=== PATIENT | female | born 1960 | race African-American/Black ===

== ENCOUNTER 2017-04-12 14:10 | Inpatient (IN) | payer MEDICAID, OTHER ==
[~2017-04-12] VITALS: Ht 162.6 cm; Wt 43.8 kg
[2017-04-12 15:38] LABS: CLARITY URINE CLOUDY (CLEAR); COLOR URINE DARK YELLOW (YELLOW); GLUCOSE URINE NEGATIVE (NEGATIVE); KETONES URINE TRACE (NEGATIVE); LEUKOCYTE ESTERASE URINE NEGATIVE (NEGATIVE); NITRITE URINE NEGATIVE (NEGATIVE); OCCULT BLOOD URINE NEGATIVE (NEGATIVE); PH URINE 5.5 (4.5-8.0); PROTEIN URINE 1+ (NEGATIVE)
[2017-04-12 15:45] LABS: BG BASE EXCESS 1.9 mmol/L (-2.0-2.0); BG CARBOXYHEMOGLOBIN 2.1 % (0.5-1.5); BG DEOXYHEMOGLOBIN 3.6 % (0.0-5.0); BG FRACTION INSPIRED OXYGEN 21; BG HCO3 ACT 26.8 mmol/L (22.0-26.0); BG METHEMOGLOBIN 0.2 % (0.0-1.5); BG OXYGEN SATURATION 96.3 % (92.0-98.5); BG OXYHEMOGLOBIN 94.1 % (94.0-97.0); BG PCO2 43.2 mmHg (35.0-45.0); BG PH 7.411 (7.350-7.450); BG PO2 83.6 mmHg (75.0-100.0); BG SAMPLE SITE RIGHT BRACHIAL; BG TOTAL HEMOGLOBIN 12.9 g/dL (12.0-18.0); BG VENT MODE ROOM AIR
[2017-04-12 15:51] LABS: *AMPHETAMINES SCREEN URINE NEGATIVE (NEGATIVE); *BARBITURATES SCREEN URINE NEGATIVE (NEGATIVE); *BENZODIAZEPINES SCREEN URINE NEGATIVE (NEGATIVE); *COCAINE SCREEN URINE NEGATIVE (NEGATIVE); CANNABINOID URINE SCREEN NEGATIVE (NEGATIVE); METHADONE URINE SCREEN NEGATIVE (NEGATIVE); OPIATES URINE SCREEN NEGATIVE (NEGATIVE); PHENCYCLIDINE URINE SCREEN NEGATIVE (NEGATIVE)
[2017-04-12 15:53] LABS: MEAN CORPUSCULAR HEMOGLOBIN 23.6 pg (28.0-32.0); MEAN CORPUSCULAR VOLUME 74.9 fL (81.0-99.0); PLATELET 234 x1000/uL (130-400); RED BLOOD CELL COUNT 5.07 mill/uL (4.2-5.4); RED CELL DISTRIBUTION WIDTH 16.8 % (11.6-14.6)
[2017-04-12 15:55] LABS: CHLORIDE 105 mEq/L (98-107)
[2017-04-12 15:59] LABS: AMMONIA 26 uMol/L (<32)
[2017-04-12 16:02] LABS: CARBON DIOXIDE 28 mEq/L (21-32); ETHANOL BLOOD < 10 mg/dL
[2017-04-12 17:18] LABS: PLATELET ESTIMATE NORMAL
[2017-04-13] VITALS (9 sets, daily range): BP systolic 119–137; BP diastolic 75–89
[2017-04-13] MEDS ORDERED: SODIUM CHLORIDE 0.45% 1,000 ML IV SCH (08:13)
[2017-04-13] MEDS ORDERED: CLONIDINE 0.1MG TABLET PO PRN (08:15)
[2017-04-13] MEDS ORDERED: GUAIFENESIN 200MG/10ML SUGAR FREE UDC PO PRN (08:15)
[2017-04-13] MEDS ORDERED: NA PHOS,M-B/NA PHOS,DI-BA ENEMA 118ML PR PRN (08:15)
[2017-04-13] MEDS ORDERED: ACETAMINOPHEN 325MG TABLET PO PRN (08:15)
[2017-04-13] MEDS ORDERED: ONDANSETRON HCL 4MG/2ML VIAL IV PRN (08:15)
[2017-04-13] MEDS ORDERED: ACETAMINOPHEN 650MG/20.3ML UDC GT PRN (08:15)
[2017-04-13] MEDS ORDERED: DOCUSATE SODIUM 100MG CAPSULE PO PRN (08:15)
[2017-04-13] MEDS ORDERED: DIPHENHYDRAMINE 50MG/ML VIAL IV PRN (08:15)
[2017-04-13] MEDS ORDERED: IPRATROPIUM/ALBUTEROL 0.5-3(2.5)MG/3ML NEB INH PRN (08:15)
[2017-04-13] MEDS: ASPIRIN 325MG TABLET PO SCH (09:13)
[2017-04-13] MEDS: SODIUM CHLORIDE 0.45% 1,000 ML IV SCH ×2 (09:13→21:55)
[2017-04-13] MEDS ORDERED: INFLUENZA VIRUS VACCINE 0.5ML SYR IM ONE (10:00)
[2017-04-13 12:50] LABS: HEMATOCRIT. 37.1 % (36.0-48.0); HEMOGLOBIN. 11.6 g/dL (12.0-16.0); MEAN CORPUSCULAR HEMOGLOBIN 23.3 pg (28.0-32.0); MEAN CORPUSCULAR VOLUME 74.6 fL (81.0-99.0); MEAN PLATELET VOLUME 8.2 fl (7.4-10.4); PLATELET 259 x1000/uL (130-400); RED BLOOD CELL COUNT 4.97 mill/uL (4.2-5.4); RED CELL DISTRIBUTION WIDTH 16.3 % (11.6-14.6)
[2017-04-13 13:11] LABS: CARBON DIOXIDE 26 mEq/L (21-32); CHLORIDE 104 mEq/L (98-107); HDL CHOLESTEROL 51 mg/dL (40-59); LDL CHOLESTEROL 126 mg/dL (5-100)
[2017-04-13] MEDS: SODIUM CHLORIDE 0.9% INJ 3ML FLUSH IVF SCH ×2 (13:11→21:55)
[2017-04-13 13:56] LABS: PLATELET ESTIMATE NORMAL
[2017-04-13] MEDS ORDERED: POTASSIUM CHLORIDE 20MEQ/PACKET PO NR (15:45)
[2017-04-13 17:42] LABS: CREATINE KINASE 102 IU/L (26-192); TROPONIN I < 0.02 ng/mL (0.00-0.04)
[2017-04-13] MEDS ORDERED: POTASSIUM CHLORIDE INJ 40 MEQ in DEXT 5% WATER 250 ML IV NR (21:00)
[2017-04-13] MEDS: ATORVASTATIN CALCIUM 10MG TABLET PO SCH (21:55)
[2017-04-14] VITALS (17 sets, daily range): BP systolic 110–154; BP diastolic 56–99
[2017-04-14 02:22] LABS: CREATINE KINASE 129 IU/L (26-192); TROPONIN I < 0.02 ng/mL (0.00-0.04)
[2017-04-14] MEDS: SODIUM CHLORIDE 0.9% INJ 3ML FLUSH IVF SCH ×3 (06:13→22:10)
[2017-04-14 06:50] LABS: HEMATOCRIT. 36.4 % (36.0-48.0); HEMOGLOBIN. 11.5 g/dL (12.0-16.0); MEAN CORPUSCULAR HEMOGLOBIN 23.7 pg (28.0-32.0); MEAN CORPUSCULAR VOLUME 75.2 fL (81.0-99.0); MEAN PLATELET VOLUME 8.2 fl (7.4-10.4); PLATELET 245 x1000/uL (130-400); RED BLOOD CELL COUNT 4.85 mill/uL (4.2-5.4); RED CELL DISTRIBUTION WIDTH 16.4 % (11.6-14.6)
[2017-04-14 07:23] LABS: CARBON DIOXIDE 24 mEq/L (21-32); CHLORIDE 101 mEq/L (98-107)
[2017-04-14 07:29] LABS: HDL CHOLESTEROL 41 mg/dL (40-59); LDL CHOLESTEROL 120 mg/dL (5-100)
[2017-04-14] MEDS: ASPIRIN 325MG TABLET PO SCH (08:58)
[2017-04-14 17:13] LABS: PLATELET ESTIMATE NORMAL
[2017-04-14] MEDS: ATORVASTATIN CALCIUM 10MG TABLET PO SCH (22:10)
[2017-04-15] VITALS (11 sets, daily range): BP systolic 90–140; BP diastolic 58–83
[2017-04-15] MEDS: SODIUM CHLORIDE 0.9% INJ 3ML FLUSH IVF SCH ×3 (06:45→21:29)
[2017-04-15] MEDS: ASPIRIN 325MG TABLET PO SCH (08:58)
[2017-04-15] MEDS: ATORVASTATIN CALCIUM 10MG TABLET PO SCH (21:29)
[2017-04-15] MEDS: THIAMINE HCL 100MG TABLET PO SCH (21:31)
[2017-04-16] VITALS (9 sets, daily range): BP systolic 100–117; BP diastolic 67–79
[2017-04-16] MEDS: SODIUM CHLORIDE 0.9% INJ 3ML FLUSH IVF SCH ×3 (06:17→21:37)
[2017-04-16] MEDS: ASPIRIN 325MG TABLET PO SCH (08:47)
[2017-04-16] MEDS: THIAMINE HCL 100MG TABLET PO SCH (08:47)
[2017-04-16] MEDS: ATORVASTATIN CALCIUM 10MG TABLET PO SCH (20:11)
[2017-04-17] VITALS: BP 114/66
[2017-04-17 04:00] VITALS: BP 113/71
[2017-04-17] MEDS: SODIUM CHLORIDE 0.9% INJ 3ML FLUSH IVF SCH ×3 (06:20→22:00)
[2017-04-17 08:00] VITALS: BP 107/72
[2017-04-17] MEDS: THIAMINE HCL 100MG TABLET PO SCH (09:27)
[2017-04-17] MEDS: ASPIRIN 325MG TABLET PO SCH (09:27)
[2017-04-17 12:00] VITALS: BP 94/59
[2017-04-17 16:00] VITALS: BP 97/67
[2017-04-17 20:00] VITALS: BP 98/70
[2017-04-17] MEDS: ATORVASTATIN CALCIUM 10MG TABLET PO SCH (23:20)
[2017-04-18] VITALS: BP 107/74
[2017-04-18 04:00] VITALS: BP 99/62
[2017-04-18] MEDS: SODIUM CHLORIDE 0.9% INJ 3ML FLUSH IVF SCH ×3 (06:00→22:00)
[2017-04-18 08:00] VITALS: BP 102/76
[2017-04-18] MEDS: THIAMINE HCL 100MG TABLET PO SCH (08:02)
[2017-04-18] MEDS: ASPIRIN 325MG TABLET PO SCH (08:02)
[2017-04-18 12:00] VITALS: BP 103/70
[2017-04-18 16:00] VITALS: BP 124/64
[2017-04-18 20:00] VITALS: BP 125/77
[2017-04-18] MEDS: ATORVASTATIN CALCIUM 10MG TABLET PO SCH (21:00)
[2017-04-19] VITALS: BP 105/72
[2017-04-19 04:00] VITALS: BP 106/65
[2017-04-19] MEDS: SODIUM CHLORIDE 0.9% INJ 3ML FLUSH IVF SCH ×3 (06:00→21:51)
[2017-04-19 08:00] VITALS: BP 108/70
[2017-04-19] MEDS: ASPIRIN 325MG TABLET PO SCH (08:28)
[2017-04-19] MEDS: THIAMINE HCL 100MG TABLET PO SCH (08:28)
[2017-04-19 12:00] VITALS: BP 97/56
[2017-04-19 16:00] VITALS: BP 92/57
[2017-04-19 20:00] VITALS: BP 112/81
[2017-04-19 20:04] LABS: BASOPHILS % 0.4 % (0.0-2.0); EOSINOPHILS % 3.3 % (0.0-5.0); HEMATOCRIT. 39.2 % (36.0-48.0); HEMOGLOBIN. 12.6 g/dL (12.0-16.0); LYMPHOCYTES % 29.1 % (20.0-50.0); MEAN CORPUSCULAR HEMOGLOBIN 24.3 pg (28.0-32.0); MEAN CORPUSCULAR VOLUME 75.5 fL (81.0-99.0); MEAN PLATELET VOLUME 8.4 fl (7.4-10.4); NEUTROPHILS % 52.2 % (40.0-76.0); PLATELET 292 x1000/uL (130-400); RED BLOOD CELL COUNT 5.19 mill/uL (4.2-5.4); RED CELL DISTRIBUTION WIDTH 15.2 % (11.6-14.6)
[2017-04-19 20:19] LABS: CARBON DIOXIDE 26 mEq/L (21-32); CHLORIDE 98 mEq/L (98-107)
[2017-04-19 21:08] LABS: PLATELET ESTIMATE NORMAL
[2017-04-19] MEDS: ATORVASTATIN CALCIUM 10MG TABLET PO SCH (21:49)
[2017-04-20] VITALS: BP 115/76
[2017-04-20 04:00] VITALS: BP 111/70
[2017-04-20] MEDS: SODIUM CHLORIDE 0.9% INJ 3ML FLUSH IVF SCH ×2 (06:00→22:00)
[2017-04-20 08:00] VITALS: BP_SYST 103; BP_SYST 97; BP_DIAS 68; BP_DIAS 69
[2017-04-20] MEDS: ASPIRIN 325MG TABLET PO SCH (09:00)
[2017-04-20] MEDS: THIAMINE HCL 100MG TABLET PO SCH (09:00)
[2017-04-20 15:46] VITALS: BP 103/67
[2017-04-20 20:00] VITALS: BP 106/73
[2017-04-20] MEDS: ATORVASTATIN CALCIUM 10MG TABLET PO SCH (22:01)
[2017-04-21] VITALS: BP 99/59
[2017-04-21 04:00] VITALS: BP 98/66
[2017-04-21 08:00] VITALS: BP 103/68
[2017-04-21] MEDS: ASPIRIN 325MG TABLET PO SCH (08:59)
[2017-04-21] MEDS: THIAMINE HCL 100MG TABLET PO SCH (08:59)
[2017-04-21 12:00] VITALS: BP 97/71
[2017-04-21] MEDS: SODIUM CHLORIDE 0.9% INJ 3ML FLUSH IVF SCH ×2 (14:00→21:14)
[2017-04-21 16:00] VITALS: BP 99/67
[2017-04-21 20:00] VITALS: BP 100/70
[2017-04-21] MEDS: ATORVASTATIN CALCIUM 10MG TABLET PO SCH ×2 (21:00→21:14)
[2017-04-22] VITALS: BP 94/64
[2017-04-22 04:00] VITALS: BP 94/64
[2017-04-22] MEDS: SODIUM CHLORIDE 0.9% INJ 3ML FLUSH IVF SCH ×3 (06:00→22:00)
[2017-04-22 08:00] VITALS: BP 105/69
[2017-04-22] MEDS: ASPIRIN 325MG TABLET PO SCH (08:59)
[2017-04-22] MEDS: THIAMINE HCL 100MG TABLET PO SCH (09:00)
[2017-04-22 12:00] VITALS: BP 100/66
[2017-04-22 16:00] VITALS: BP 101/68
[2017-04-22 20:00] VITALS: BP 95/67
[2017-04-22] MEDS: ATORVASTATIN CALCIUM 10MG TABLET PO SCH (23:39)
[2017-04-23] VITALS: BP 100/60
[2017-04-23 04:00] VITALS: BP 100/52
[2017-04-23] MEDS: SODIUM CHLORIDE 0.9% INJ 3ML FLUSH IVF SCH ×3 (06:00→21:57)
[2017-04-23 08:00] VITALS: BP 99/64
[2017-04-23] MEDS: ASPIRIN 325MG TABLET PO SCH (08:21)
[2017-04-23] MEDS: THIAMINE HCL 100MG TABLET PO SCH (08:21)
[2017-04-23 12:00] VITALS: BP 100/67
[2017-04-23 16:00] VITALS: BP 97/64
[2017-04-23 20:00] VITALS: BP 99/66
[2017-04-23] MEDS: ATORVASTATIN CALCIUM 10MG TABLET PO SCH (21:56)
[2017-04-24] VITALS: BP 97/62
[2017-04-24 04:00] VITALS: BP 96/62
[2017-04-24] MEDS: SODIUM CHLORIDE 0.9% INJ 3ML FLUSH IVF SCH ×3 (06:00→22:00)
[2017-04-24 08:00] VITALS: BP 125/76
[2017-04-24] MEDS: ASPIRIN 325MG TABLET PO SCH (08:44)
[2017-04-24] MEDS: THIAMINE HCL 100MG TABLET PO SCH (08:44)
[2017-04-24 12:00] VITALS: BP 101/60
[2017-04-24 16:00] VITALS: BP 91/56
[2017-04-24 20:00] VITALS: BP 91/58
[2017-04-24 22:00] LABS: HEMATOCRIT. 37.1 % (36.0-48.0); HEMOGLOBIN. 11.8 g/dL (12.0-16.0); MEAN CORPUSCULAR HEMOGLOBIN 23.8 pg (28.0-32.0); MEAN CORPUSCULAR VOLUME 74.9 fL (81.0-99.0); MEAN PLATELET VOLUME 7.2 fl (7.4-10.4); PLATELET 269 x1000/uL (130-400); RED BLOOD CELL COUNT 4.95 mill/uL (4.2-5.4); RED CELL DISTRIBUTION WIDTH 15.1 % (11.6-14.6)
[2017-04-24] MEDS: ATORVASTATIN CALCIUM 10MG TABLET PO SCH (22:06)
[2017-04-24 22:14] LABS: CARBON DIOXIDE 29 mEq/L (21-32); CHLORIDE 100 mEq/L (98-107)
[2017-04-24 22:27] LABS: PLATELET ESTIMATE NORMAL
[2017-04-25] VITALS: BP 96/64
[2017-04-25 08:00] VITALS: BP 97/58
[2017-04-25] MEDS: SODIUM CHLORIDE 0.9% INJ 3ML FLUSH IVF SCH ×3 (11:30→22:00)
[2017-04-25] MEDS: THIAMINE HCL 100MG TABLET PO SCH (11:31)
[2017-04-25] MEDS: ASPIRIN 325MG TABLET PO SCH (11:33)
[2017-04-25 12:00] VITALS: BP 90/60
[2017-04-25 16:00] VITALS: BP 95/62
[2017-04-25 20:00] VITALS: BP 122/80
[2017-04-25] MEDS: ATORVASTATIN CALCIUM 10MG TABLET PO SCH (22:01)
[2017-04-26] VITALS: BP 130/66
[2017-04-26 04:00] VITALS: BP 136/70
[2017-04-26] MEDS: SODIUM CHLORIDE 0.9% INJ 3ML FLUSH IVF SCH ×3 (06:00→22:00)
[2017-04-26 08:00] VITALS: BP 104/68
[2017-04-26] MEDS: ASPIRIN 325MG TABLET PO SCH (11:24)
[2017-04-26] MEDS: THIAMINE HCL 100MG TABLET PO SCH (11:24)
[2017-04-26 12:00] VITALS: BP 100/66
[2017-04-26 16:00] VITALS: BP 95/66
[2017-04-26 20:00] VITALS: BP 149/89
[2017-04-26] MEDS: ATORVASTATIN CALCIUM 10MG TABLET PO SCH (23:24)
[2017-04-27] VITALS: BP 109/70
[2017-04-27 04:00] VITALS: BP 111/69
[2017-04-27] MEDS: SODIUM CHLORIDE 0.9% INJ 3ML FLUSH IVF SCH ×3 (06:00→22:00)
[2017-04-27 08:00] VITALS: BP 98/58
[2017-04-27] MEDS: ASPIRIN 325MG TABLET PO SCH (09:34)
[2017-04-27] MEDS: THIAMINE HCL 100MG TABLET PO SCH (09:34)
[2017-04-27 12:00] VITALS: BP 93/67
[2017-04-27 16:00] VITALS: BP 91/63
[2017-04-27 20:00] VITALS: BP 96/55
[2017-04-27] MEDS: ATORVASTATIN CALCIUM 10MG TABLET PO SCH (20:43)
[2017-04-28] VITALS: BP 96/73
[2017-04-28 04:00] VITALS: BP 107/66
[2017-04-28] MEDS: SODIUM CHLORIDE 0.9% INJ 3ML FLUSH IVF SCH ×3 (06:00→21:30)
[2017-04-28 08:00] VITALS: BP 100/66
[2017-04-28] MEDS: THIAMINE HCL 100MG TABLET PO SCH (09:55)
[2017-04-28] MEDS: ASPIRIN 325MG TABLET PO SCH (09:55)
[2017-04-28 12:00] VITALS: BP 95/59
[2017-04-28 16:00] VITALS: BP 94/59
[2017-04-28] MEDS: ATORVASTATIN CALCIUM 10MG TABLET PO SCH (21:35)
[2017-04-29] VITALS: BP 90/59
[2017-04-29] MEDS: SODIUM CHLORIDE 0.9% INJ 3ML FLUSH IVF SCH ×2 (06:00→14:00)
[2017-04-29 08:00] VITALS: BP 109/70
[2017-04-29] MEDS: THIAMINE HCL 100MG TABLET PO SCH (09:00)
[2017-04-29] MEDS: ASPIRIN 325MG TABLET PO SCH (09:00)
[2017-04-29 12:00] VITALS: BP 90/59
[2017-04-29 16:00] VITALS: BP 93/62
[2017-04-29 20:00] VITALS: BP 99/67
[2017-04-29] MEDS: ATORVASTATIN CALCIUM 10MG TABLET PO SCH (20:44)
[2017-04-30] VITALS (7 sets, daily range): BP systolic 85–105; BP diastolic 53–80
[2017-04-30] MEDS: ASPIRIN 325MG TABLET PO SCH (08:56)
[2017-04-30] MEDS: THIAMINE HCL 100MG TABLET PO SCH (08:56)
[2017-04-30] MEDS: ATORVASTATIN CALCIUM 10MG TABLET PO SCH (20:34)
[2017-05-01] VITALS: BP 108/72
[2017-05-01 04:00] VITALS: BP 100/60
[2017-05-01 08:00] VITALS: BP 98/62
[2017-05-01] MEDS: THIAMINE HCL 100MG TABLET PO SCH (08:16)
[2017-05-01] MEDS: ASPIRIN 325MG TABLET PO SCH (08:16)
[2017-05-01 12:00] VITALS: BP 94/52
[2017-05-01 16:00] VITALS: BP 101/74
[2017-05-01 20:00] VITALS: BP 96/57
[2017-05-01] MEDS: ATORVASTATIN CALCIUM 10MG TABLET PO SCH (22:19)
[2017-05-02] VITALS: BP 140/70
[2017-05-02 04:00] VITALS: BP 91/55
[2017-05-02] MEDS: THIAMINE HCL 100MG TABLET PO SCH (08:23)
[2017-05-02] MEDS: ASPIRIN 325MG TABLET PO SCH (08:23)
[2017-05-02 20:00] VITALS: BP 95/64
[2017-05-02] MEDS: ATORVASTATIN CALCIUM 10MG TABLET PO SCH (21:55)
[2017-05-03] VITALS: BP 102/74
[2017-05-03 04:00] VITALS: BP 93/61
[2017-05-03 08:00] VITALS: BP 110/76
[2017-05-03] MEDS: THIAMINE HCL 100MG TABLET PO SCH (09:53)
[2017-05-03] MEDS: ASPIRIN 325MG TABLET PO SCH (09:53)
[2017-05-03 12:00] VITALS: BP 95/61
[2017-05-03 16:00] VITALS: BP 98/65
[2017-05-03 20:00] VITALS: BP 93/65
[2017-05-03] MEDS: ATORVASTATIN CALCIUM 10MG TABLET PO SCH (21:00)
[2017-05-04] VITALS: BP 104/66
[2017-05-04 04:00] VITALS: BP 92/56
[2017-05-04 07:34] VITALS: BP 102/68
[2017-05-04] MEDS: ASPIRIN 325MG TABLET PO SCH (09:10)
[2017-05-04] MEDS: THIAMINE HCL 100MG TABLET PO SCH (09:10)
[2017-05-04 12:05] VITALS: BP 92/47
[2017-05-04 15:47] VITALS: BP 105/64
[2017-05-04 20:00] VITALS: BP 103/70
[2017-05-04] MEDS: ATORVASTATIN CALCIUM 10MG TABLET PO SCH (21:46)
[2017-05-05] VITALS: BP 119/76
[2017-05-05 04:00] VITALS: BP 104/69
[2017-05-05 08:00] VITALS: BP 154/76
[2017-05-05] MEDS: ASPIRIN 325MG TABLET PO SCH (11:14)
[2017-05-05] MEDS: THIAMINE HCL 100MG TABLET PO SCH (11:14)
[2017-05-05 12:00] VITALS: BP 97/62
[2017-05-05 16:00] VITALS: BP 101/69
[2017-05-05 20:00] VITALS: BP 102/66
[2017-05-05] MEDS: ATORVASTATIN CALCIUM 10MG TABLET PO SCH (21:13)
[2017-05-06] VITALS: BP 104/69
[2017-05-06 04:00] VITALS: BP 90/58
[2017-05-06 08:00] VITALS: BP 101/67
[2017-05-06] MEDS: ASPIRIN 325MG TABLET PO SCH (10:32)
[2017-05-06] MEDS: THIAMINE HCL 100MG TABLET PO SCH (10:32)
[2017-05-06 12:00] VITALS: BP 90/65
[2017-05-06 16:00] VITALS: BP 89/57
[2017-05-06 20:00] VITALS: BP 111/72
[2017-05-06] MEDS: ATORVASTATIN CALCIUM 10MG TABLET PO SCH (21:52)
[2017-05-07] VITALS: BP 101/65
[2017-05-07 04:00] VITALS: BP 110/62
[2017-05-07 08:00] VITALS: BP 101/87
[2017-05-07] MEDS: ASPIRIN 325MG TABLET PO SCH (09:46)
[2017-05-07] MEDS: THIAMINE HCL 100MG TABLET PO SCH (09:46)
[2017-05-07 12:00] VITALS: BP 99/65
[2017-05-07 16:00] VITALS: BP 87/61
[2017-05-07 20:00] VITALS: BP 93/67
[2017-05-07] MEDS: ATORVASTATIN CALCIUM 10MG TABLET PO SCH (21:37)
[2017-05-08] VITALS: BP 98/67
[2017-05-08 04:00] VITALS: BP 101/71
[2017-05-08 08:00] VITALS: BP 112/79
[2017-05-08] MEDS: THIAMINE HCL 100MG TABLET PO SCH (09:18)
[2017-05-08] MEDS: ASPIRIN 325MG TABLET PO SCH (09:18)
[2017-05-08] MEDS ORDERED: MIDAZOLAM HCL 2 MG/2 ML VIAL ONE (10:43)
[2017-05-08] MEDS ORDERED: HEPARIN 1,000 UNITS PREMIX 0 ML IV ONE (10:44)
[2017-05-08] MEDS ORDERED: IODIXANOL 320MG/ML 100 ML BOTTLE IV ONE (10:44)
[2017-05-08] MEDS ORDERED: FENTANYL CITRATE/PF 50MCG/ML 2ML VIAL ONE (10:44)
[2017-05-08] MEDS ORDERED: LIDOCAINE HCL 1% 20ML VIAL (Pyxis) INJ ONE (10:44)
[2017-05-08 12:00] VITALS: BP 98/65
[2017-05-08 16:00] VITALS: BP 97/67
[2017-05-08 20:00] VITALS: BP 93/64
[2017-05-08] MEDS: ATORVASTATIN CALCIUM 10MG TABLET PO SCH (20:58)
[2017-05-09] VITALS: BP 93/60
[2017-05-09 04:00] VITALS: BP 83/53
[2017-05-09 06:47] LABS: BASOPHILS % 0.6 % (0.0-2.0); HEMATOCRIT. 38.8 % (36.0-48.0); HEMOGLOBIN. 12.2 g/dL (12.0-16.0); LYMPHOCYTES % 24.3 % (20.0-50.0); MEAN CORPUSCULAR HEMOGLOBIN 23.3 pg (28.0-32.0); MEAN CORPUSCULAR VOLUME 74.1 fL (81.0-99.0); MEAN PLATELET VOLUME 8.3 fl (7.4-10.4); MONOCYTES % 14.3 % (2.0-8.0); NEUTROPHILS % 58.8 % (40.0-76.0); PLATELET 217 x1000/uL (130-400); RED BLOOD CELL COUNT 5.24 mill/uL (4.2-5.4); RED CELL DISTRIBUTION WIDTH 14.7 % (11.6-14.6)
[2017-05-09 07:10] LABS: CARBON DIOXIDE 23 mEq/L (21-32); CHLORIDE 104 mEq/L (98-107)
[2017-05-09 08:00] VITALS: BP 102/61
[2017-05-09] MEDS: ASPIRIN 325MG TABLET PO SCH (11:06)
[2017-05-09] MEDS: THIAMINE HCL 100MG TABLET PO SCH (11:07)
[2017-05-09 12:00] VITALS: BP 111/66
[2017-05-09 16:00] VITALS: BP 105/62
[2017-05-09 20:00] VITALS: BP 100/65
[2017-05-09] MEDS: ATORVASTATIN CALCIUM 10MG TABLET PO SCH (20:34)
[2017-05-10] VITALS (8 sets, daily range): BP systolic 92–110; BP diastolic 55–66
[2017-05-10] MEDS: THIAMINE HCL 100MG TABLET PO SCH (08:15)
[2017-05-10] MEDS: ASPIRIN 325MG TABLET PO SCH (08:15)
[2017-05-10] MEDS: ATORVASTATIN CALCIUM 10MG TABLET PO SCH (21:39)
[2017-05-11] VITALS (7 sets, daily range): BP systolic 81–98; BP diastolic 51–66
[2017-05-11] MEDS: THIAMINE HCL 100MG TABLET PO SCH (09:05)
[2017-05-11] MEDS: ASPIRIN 325MG TABLET PO SCH (09:05)
[2017-05-11] MEDS: ATORVASTATIN CALCIUM 10MG TABLET PO SCH (22:33)
[2017-05-12] VITALS: BP 96/54
[2017-05-12 04:00] VITALS: BP 101/55
[2017-05-12 08:00] VITALS: BP 181/89
[2017-05-12 12:00] VITALS: BP 159/85
[2017-05-12] MEDS: THIAMINE HCL 100MG TABLET PO SCH (12:18)
[2017-05-12] MEDS: ASPIRIN 325MG TABLET PO SCH (12:18)
[2017-05-12 16:00] VITALS: BP 149/88
[2017-05-12 20:00] VITALS: BP 99/63
[2017-05-12] MEDS: ATORVASTATIN CALCIUM 10MG TABLET PO SCH (21:54)
[2017-05-13] VITALS: BP 93/61
[2017-05-13 04:00] VITALS: BP 100/63
[2017-05-13 08:00] VITALS: BP 111/70
[2017-05-13] MEDS: ASPIRIN 325MG TABLET PO SCH (08:55)
[2017-05-13] MEDS: THIAMINE HCL 100MG TABLET PO SCH (08:55)
[2017-05-13 12:00] VITALS: BP 96/60
[2017-05-13 16:00] VITALS: BP 96/65
[2017-05-13 20:00] VITALS: BP 99/53
[2017-05-13] MEDS: ATORVASTATIN CALCIUM 10MG TABLET PO SCH (21:24)
[2017-05-14 00:45] VITALS: BP 102/70
[2017-05-14 04:00] VITALS: BP 111/69
[2017-05-14 08:00] VITALS: BP 120/72
[2017-05-14] MEDS: ASPIRIN 325MG TABLET PO SCH (09:58)
[2017-05-14 12:00] VITALS: BP 96/55
[2017-05-14 16:00] VITALS: BP 96/61
[2017-05-14 20:00] VITALS: BP 96/61
[2017-05-14] MEDS: ATORVASTATIN CALCIUM 10MG TABLET PO SCH (20:30)
[2017-05-15] VITALS: BP 94/61
[2017-05-15 04:00] VITALS: BP 88/56
[2017-05-15 08:00] VITALS: BP 118/80
[2017-05-15] MEDS: ASPIRIN 325MG TABLET PO SCH (08:50)
[2017-05-15 11:47] VITALS: BP 95/64
[2017-05-15 16:00] VITALS: BP 88/58
[2017-05-15 20:00] VITALS: BP 102/70
[2017-05-15] MEDS: ATORVASTATIN CALCIUM 10MG TABLET PO SCH (21:46)
[2017-05-16] VITALS: BP 119/61
[2017-05-16 04:00] VITALS: BP 111/73
[2017-05-16 08:00] VITALS: BP 97/70
[2017-05-16] MEDS: ASPIRIN 325MG TABLET PO SCH (09:00)
[2017-05-16 12:00] VITALS: BP 95/63
[2017-05-16] MEDS ORDERED: ASPI-986 PO (12:36)
[2017-05-16] MEDS ORDERED: ATOR10TA PO (12:36)
[2017-05-16 16:00] VITALS: BP 94/47
[2017-05-16 20:00] VITALS: BP 96/62
[2017-05-16] MEDS: ATORVASTATIN CALCIUM 10MG TABLET PO SCH (21:32)
[2017-05-17] VITALS: BP 100/61
[2017-05-17 04:00] VITALS: BP 95/60
[2017-05-17 08:00] VITALS: BP 101/69
[2017-05-17] MEDS: ASPIRIN 325MG TABLET PO SCH (08:05)
[2017-05-17 12:00] VITALS: BP 91/59
[2017-05-17 16:00] VITALS: BP 101/69
[2017-05-17 20:00] VITALS: BP 92/59
[2017-05-17] MEDS: ATORVASTATIN CALCIUM 10MG TABLET PO SCH (20:19)
[2017-05-18] VITALS: BP 106/68
[2017-05-18 04:00] VITALS: BP 105/63
[2017-05-18 08:00] VITALS: BP 121/80
[2017-05-18] MEDS: ASPIRIN 325MG TABLET PO SCH (08:19)
[2017-05-18 12:00] VITALS: BP 95/67
[2017-05-18 16:00] VITALS: BP 98/69
[2017-05-18 20:00] VITALS: BP 97/66
[2017-05-18] MEDS: ATORVASTATIN CALCIUM 10MG TABLET PO SCH (22:04)
[2017-05-19] VITALS: BP 99/59
[2017-05-19 04:00] VITALS: BP 120/76
[2017-05-19 08:00] VITALS: BP 97/67
[2017-05-19] MEDS: ASPIRIN 325MG TABLET PO SCH (09:20)
[2017-05-19 12:00] VITALS: BP 104/70
[2017-05-19 16:00] VITALS: BP 98/73
[2017-05-19 20:00] VITALS: BP 96/63
[2017-05-19] MEDS: ATORVASTATIN CALCIUM 10MG TABLET PO SCH (21:12)
[2017-05-20] VITALS: BP 105/72
[2017-05-20 04:00] VITALS: BP 111/72
[2017-05-20 08:00] VITALS: BP 98/66
[2017-05-20] MEDS: ASPIRIN 325MG TABLET PO SCH (09:19)
[2017-05-20 12:00] VITALS: BP 99/62
[2017-05-20 16:00] VITALS: BP 102/60
[2017-05-20 20:00] VITALS: BP 93/58
[2017-05-20] MEDS: ATORVASTATIN CALCIUM 10MG TABLET PO SCH (20:47)
[2017-05-21] VITALS (7 sets, daily range): BP systolic 92–105; BP diastolic 59–72
[2017-05-21] MEDS: ASPIRIN 325MG TABLET PO SCH (09:44)
[2017-05-21] MEDS: HYDROMORPHONE HCL/PF 2MG/ML CPJ IM PRN ×3 (12:57→18:48)
== END 2017-05-21 19:40 | disposition short-term general hospital (02) | DRG 45 ==
LOC: ER 14:25 → 5EST 18:02 → EDBD 18:02 → ENRESERV 04-13 00:54 → 6EST 04-16 10:32
PROVIDERS: ADMIT Family Medicine; ATTEND Family Medicine
DX: I63.8 Other cerebral infarction (principal); E43 Unspecified severe protein-calorie malnutrition; G93.41 Metabolic encephalopathy; I10 Essential (primary) hypertension; E11.9 Type 2 diabetes mellitus without complications; R47.81 Slurred speech; Z59.0 Homelessness
CPT/HCPCS: 36415; 36600; 70450; 80053; 80061; 80305; 81001; 82140; 82375; 82550; 82805; 82962; 83036; 84484; 85025; 90686; 92610; 93970; 96365; 97110; 97162; 97164; 97167; 97530; 99285; G0482; J1170; J1644; J2250; J3010; J3480; J3490; J7060; Q9967